=== PATIENT | female | born 1945 | race Caucasian/White ===

== ENCOUNTER → 2016-08-02 | Outpatient (CLI) | payer BC ==
[~2016-08-02] MED LIST: ALPRAZOLAM PO; APAP325 M1 PO; ASPIRIN PO; AUGMENTIN PO; AVAPRO PO; BYSTOLIC10 MG PO; CARDIZEM CD PO; COUMADIN PO; COUMADIN4 MG PO; COUMADIN5 MG PO; DIFICID200 MG PO; DIGESTIVE PROB250 MG PO; DILTIAZEM 24HR120 M1 PO; DILTIAZEM ER120 M3 PO; DOCUSATE SODIU100 MG PO; FLAGYL PO; FLORASTOR250 M1 PO; HYDROCODON-ACE1 EA12 PO; HYDROCODON-ACE1 EAC9 PO; HYDROCODONE-APA1 T55 PO; KEFLEX500 M2 PO; LEVOTHROID50 MCG PO; LEVOTHYROXINE50 MC1 PO; LORTAB 7.5-3251 EACH PO; LOVENOX80 MG/0.8 INJ; MACROBID 100 M100 MG PO; METAMUCIL1 PKT PO; MULTI VITAMIN1 EACH PO; NILSTAT1 ML PO; OMEPRAZOLE40 M1 PO; PHENERGAN12.5 MG PO; PRILOSEC PO; PRILOSEC40 MG PO; PROBIOTIC1 EACH PO; SYNTHROID PO; TOPROL XL PO; VAGIFEM10 MCG VAG; VANCOCIN HCL250 M2 PO; VANCOMYCIN HCL250 MG PO; ZOFRAN PO
--- NOTE | ~2016-08-02 | CT2 ---
[facility] A Service of [facility] & [facility] RADIOLOGY TEXT RESULTS PATIENT: MARCO ANTONIO CHANDLER LOCATION: [facility] : 47 UNIT #: [id number] AGE: [address]: Shon George MD SEX: F ORDER DR: [id number] [facility] [address] [place], [place] [address] [id number] O MR#: [id number] Acc #: [id number] NAME: MARCO ANTONIO CHANDLER : 1945 SEX: F STUDY DATE/TIME: 08/02/2016 15:09 UNIT: [facility] ROOM: STUDY DESCRIPTION: CT Abd and Pelv W Cont Attending Physician: Shon George M.D. Referring Physician: Shon George M.D. Ordering Physician: Shon George M.D. Primary Care Physician: Shon George M.D. MEDICAL IMAGING REPORT This report is preliminary unless electronic signature is present EXAM CT abdomen and pelvis with contrast, 08/02/2016 INDICATION Left lower quadrant abdominal pain and nausea for the past 3 weeks. PROCEDURE Contrast-enhanced CT of the abdomen and pelvis. 100 mL of Isovue-370. This CT exam was performed with one or more of the following radiation dose reduction techniques: automatic exposure control, adjustment of mA and/or kV according to patient size, and iterative reconstruction. COMPARISON 04/17/2016 FINDINGS ABDOMEN WITH CONTRAST: There is linear atelectasis or scarring in the lung bases. Elevated right hemidiaphragm. Liver, spleen, kidneys, adrenal glands and pancreas unremarkable. Previous cholecystectomy. 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 The liver is not frankly cirrhotic in morphology. There is postsurgical change in the distal sigmoid colon. There is mild stranding around the distal sigmoid colon extending superiorly in the retroperitoneum. This is more apparent than on the previous study. There is a fat attenuation structure lateral to the proximal sigmoid colon, that is stable. There is moderate colonic stool. No pathologically enlarged abdominal lymph nodes. There is no organized abdominal fluid collection. STS. [facility] A Service of [facility] & [facility] RADIOLOGY TEXT RESULTS PATIENT: MARCO ANTONIO CHANDLER LOCATION: [facility] : 47 UNIT #: [id number] AGE: [address]: Shon George MD SEX: F ORDER DR: PELVIS WITH CONTRAST: There is a pessary in place. No pelvic mass or fluid. No aggressive appearing bone lesion. IMPRESSION 1. Sigmoid diverticula. There is inflammatory change around the proximal to mid sigmoid colon that extends superiorly into the retroperitoneum. This is more apparent than on the previous study may be new. There is no evidence for an abscess. Findings are suspected to represent mild diverticulitis. There is no evidence for an abscess. 2. Moderate colonic stool burden. 3. Cavernous transformation in the portal vein is unchanged from the prior. Dictated by... Philip Valdes M.D. THIS IS AN ELECTRONICALLY VERIFIED REPORT Philip Valdes M.D. at 08/03/2016 7:05 AM UMA/jaqueline TD: 08/03/2016 04:26 JOB #: [id number] MEDICAL IMAGING REPORT COPY
[2016-08-02 14:45] LABS: POC - CREATININE 0.84 mg/dL (0.44-1.03); POC - GFR >60.0 mL/min (>60)
== END | disposition home or self-care (01) ==
LOC: CCAT 13:55
PROVIDERS: Internal Medicine
DX: R10.32 Left lower quadrant pain (principal); K57.30 Diverticulosis of large intestine without perforation or abscess without bleeding
CPT/HCPCS: 74177; 82565; Q9967

== ENCOUNTER → 2016-09-19 | Day surgery (SDC) | payer BC ==
--- NOTE | ~2016-09-19 | OR ---
Unit #: [id number] #: [id number] Patient: MARCO ANTONIO CHANDLER [id number] [address] [place], [place] [address] [id number] O MR#: [id number] NAME: MARCO ANTONIO CHANDLER ROOM: Date of Procedure: 09/19/2016 Admission Date: 09/19/2016 Surgeon: Xu Jacobs Jr., M.D. : 1945 Attending Physician: Xu Jacobs Jr., M.D. Primary Care Physician: Shon George M.D. PROCEDURE OPERATIVE NOTE INDICATION FOR PROCEDURE The patient is a 71-year-old white female who has had a significant past history for problems with diverticulitis. She had a sigmoid resection and thereafter developed C. difficile colitis and required a prolonged period of time in the hospital. She has been doing well up until recently when she felt like she may be developing some recurrent diverticulitis. It was felt the patient needed a repeat flexible sigmoidoscopy in view of the fact that she is having more symptoms, as this could represent colitis, as well as noted stenosis of the mucosa in the area of her previous anastomosis following her sigmoid resection. She is brought in at this time for flexible sigmoidoscopy and possible dilatation of the anastomosis. DESCRIPTION OF PROCEDURE The patient was positioned in the Barlow position with the left side down. After being given MAC anesthesia, digital rectal examination was performed which revealed no palpable mass or tenderness and no blood or stool within the rectal ampulla. The narrowed area of the anastomosis could be palpated at the top part of the fingertip with pressure. At this point, the Olympus colonoscope was advanced through the anal canal up the rectum and retroflexed down to the area of the anorectal region. There were several small internal hemorrhoidal tags but no evidence of any polyps. The scope was then straightened and advanced up the rectosigmoid where there was anastomosis with some narrowing, but the scope did go through this without significant resistance. The scope was then advanced up past multiple diverticula in the descending colon around the splenic flexure of the transverse colon a total of approximately 75 cm. The scope was then slowly brought back to the area of the anastomosis, and the 20 mm balloon dilator was then placed and brought up in the area of the anastomotic stenotic ring. It was then inflated, and the ring was then stretched with good success in the stretching of this. There was a minimal amount of oozing present. No evidence of any perforation or significant bleeding. The scope was then slowly removed. The patient tolerated the procedure well and was discharged in satisfactory condition. Dictated by... Xu Jacobs Jr., MNajma. CARRILLO/roma TD: 09/19/2016 19:35 JOB #: [id number] Unit #: [id number] #: [id number] Patient: MARCO ANTONIO CHANDLER PROCEDURE OPERATIVE NOTE Page 1 of 1 X Xu Jacobs MD X PROCEDURE OPERATIVE NOTE
== END | disposition home or self-care (01) ==
LOC: COPS 11:18
DX: K57.30 Diverticulosis of large intestine without perforation or abscess without bleeding (principal); K56.60 Unspecified intestinal obstruction; K64.8 Other hemorrhoids; I10 Essential (primary) hypertension; E78.5 Hyperlipidemia, unspecified; K21.9 Gastro-esophageal reflux disease without esophagitis; G47.30 Sleep apnea, unspecified; M19.90 Unspecified osteoarthritis, unspecified site; Z87.09 Personal history of other diseases of the respiratory system; Z86.711 Personal history of pulmonary embolism; Z87.440 Personal history of urinary (tract) infections; Z88.2 Allergy status to sulfonamides; Z88.5 Allergy status to narcotic agent; Z88.8 Allergy status to other drugs, medicaments and biological substances; Z79.01 Long term (current) use of anticoagulants; Z79.891 Long term (current) use of opiate analgesic; Z79.899 Other long term (current) drug therapy; Z90.49 Acquired absence of other specified parts of digestive tract; Z98.890 Other specified postprocedural states

== ENCOUNTER 2016-12-14 16:25 | Emergency (ER) | payer BC ==
[~2016-12-14] VITALS: Ht 157.5 cm; Wt 75.7 kg
--- NOTE | ~2016-12-14 | CR72 ---
[facility] A Service of [facility] & [facility] RADIOLOGY TEXT RESULTS PATIENT: MARCO ANTONIO CHANDLER LOCATION: [facility] : 47 UNIT #: [id number] AGE: [address]: Nuria Martinez MD SEX: F ORDER DR: [id number] [facility] [address] [place], [place] [address] [id number] MR#: [id number] Acc #: [id number] NAME: MARCO ANTONIO CHANDLER : 1945 SEX: F STUDY DATE/TIME: 12/14/2016 17:51 UNIT: [facility] ROOM: STUDY DESCRIPTION: CR Chest Single View Portable Attending Physician: Nuria Martinez M.D. Ordering Physician: Nuria Martinez M.D. Primary Care Physician: Shon George M.D. MEDICAL IMAGING REPORT This report is preliminary unless electronic signature is present EXAM Single-view chest dated 12/14/2016. COMPARISON Chest 2 views dated 12/13/2015. HISTORY Weakness, shortness of air today. FINDINGS Single view of the chest was obtained. No acute cardiopulmonary disease. Raised right hemidiaphragm is redemonstrated. Endplate multilevel osteophytes are noted. Stable borderline [id number] cardiomegaly. Dictated by... Carmina Ceballos M.D. THIS IS AN ELECTRONICALLY VERIFIED REPORT Carmina Ceballos M.D. at 12/15/2016 4:28 PM CPR/psc TD: 12/14/2016 21:19 JOB #: [id number] MEDICAL IMAGING REPORT Page 1 of 1 COPY
--- NOTE | ~2016-12-14 | EKG ---
PATIENT: MARCO ANTONIO CHANDLER UNIT #: [id number] Ventricular Rate: 70 BPM Atrial Rate: 70 BPM P-R Interval: 148 ms QRS Duration: 74 ms Q-T Interval: 410 ms QTC Calculation(Bezet): 442 ms P [place]: 33 degrees Calculated R [place]: 58 degrees Calculated T [place]: 35 degrees Diagnosis Line: Normal sinus rhythm Diagnosis Line: Junctional ST depression, probably normal Diagnosis Line: Borderline ECG Diagnosis Line: Diagnosis Line: Confirmed by ANALI CASTRO MD ([id number]) on Diagnosis Line: 12/15/2016 7:31:35 AM INTERPRETING MD: GLORIA ALANIZ
[2016-12-14 17:43] LABS: URINE SOURCE CLEAN CATCH
[2016-12-14 17:47] LABS: URINE APPEARANCE CLEAR; URINE BILIRUBIN NEG (NEG); URINE BLOOD NEG (NEG); URINE COLOR YELLOW; URINE GLUCOSE NEG (NEG); URINE KETONE NEG (NEG); URINE LEUKOCYTE ESTERASE NEG (NEG); URINE NITRATE NEG (NEG); URINE PH 6.5 (5-8); URINE PROTEIN NEG (NEG); URINE SPECIFIC GRAVITY 1.021 (1.003-1.035)
[2016-12-14 17:52] LABS: CULTURE INDICATED? NO
[2016-12-14 18:02] LABS: BASOPHIL% 0.8 % (0-2.5); DIFF IND NO; EOSINOPHIL# 0.1 X10e3 (0-0.7); EOSINOPHIL% 1.8 % (0.0-7.0); HEMATOCRIT 36.9 % (35.0-45.0); HEMOGLOBIN 12.3 gm/dL (12.0-16.0); LYMPHOCYTE# 1.2 X10e3 (1.0-3.5); LYMPHOCYTE% 29.7 % (17.0-45.0); MEAN CELL VOLUME 93.6 FL (83-96); MEAN CORPUSCULAR HEMOGLOBIN 31.2 PG (28-34); MEAN CORPUSCULAR HGB CONC 33.4 g/dL (30-36); MEAN PLATELET VOLUME 8.3 FL (6.5-11.5); MONOCYTE# 0.4 X10e3 (0-1.0); NEUTROPHIL# 2.3 X10e3 (1.5-7.1); NEUTROPHIL% 58.7 % (40-75); PLATELET COUNT 143 X10e3 (140-420); RED BLOOD COUNT 3.94 X10e (3.90-5.30); RED CELL DISTRIBUTION WIDTH 14.1 % (11.0-15.5)
[2016-12-14 18:09] LABS: POC - CKMB <1.0 ng/mL (0.0-7.9); POC - TROPONIN <0.05 ng/mL (<=0.05)
[2016-12-14 18:16] LABS: INR 2.6; PARTIAL THROMBOPLASTIN TIME 34.5 SECONDS (23.5-31.3)
[2016-12-14 18:42] LABS: ALBUMIN SERUM 4.3 g/dL (3.5-5.0); BILIRUBIN, DIRECT 0.3 mg/dL (0.0-0.2); BILIRUBIN,INDIRECT 1.3 mg/dL (0.0-0.9); BILIRUBIN,TOTAL 1.6 mg/dL (0.2-2.0); CALCIUM SERUM 9.3 mg/dL (8.4-10.2); CREATININE SERUM 0.5 mg/dL (0.6-1.4); GLOM FILT RATE Estimated 98.1 mL/min (>60); POTASSIUM 3.6 mmol/L (3.5-5.1); PROTEIN TOTAL SERUM 7.4 g/dL (6.0-8.3)
[2016-12-14 20:06] LABS: POC - CKMB 1.3 ng/mL (0.0-7.9); POC - TROPONIN <0.05 ng/mL (<=0.05)
== END 2016-12-14 21:25 | disposition home or self-care (01) ==
LOC: CED 16:25
PROVIDERS: Emergency Medicine
DX: K57.92 Diverticulitis of intestine, part unspecified, without perforation or abscess without bleeding (principal); T50.8X5A Adverse effect of diagnostic agents, initial encounter; I10 Essential (primary) hypertension; Z90.49 Acquired absence of other specified parts of digestive tract; Z79.899 Other long term (current) drug therapy; Z88.8 Allergy status to other drugs, medicaments and biological substances
CPT/HCPCS: 36415; 71010; 80048; 80076; 81003; 82553; 84484; 85025; 85610; 85730; 93005; 99284

== ENCOUNTER → 2016-12-14 | Outpatient (CLI) | payer BC ==
--- NOTE | ~2016-12-14 | CT2 ---
[facility] A Service of [facility] & [facility] RADIOLOGY TEXT RESULTS PATIENT: MARCO ANTONIO CHANDLER [facility] : 47 UNIT #: [id number] AGE: [address]: Shon George MD SEX: F ORDER DR: [id number] [facility] [address] [facility]. [place], [place] [address] [id number] O MR#: [id number] Acc #: [id number] NAME: MARCO ANTONIO CHANDLER : 1945 SEX: F STUDY DATE/TIME: 12/14/2016 16:13 UNIT: [facility] ROOM: STUDY DESCRIPTION: CT Abd and Pelv W Cont Attending Physician: Shon George M.D. Referring Physician: Shon George M.D. Ordering Physician: Shon George M.D. Primary Care Physician: Shon George M.D. MEDICAL IMAGING REPORT This report is preliminary unless electronic signature is present EXAM CT of the abdomen and pelvis with contrast INDICATIONS Left sided abdominal pain for 1 week, diarrhea for [address] scan of the abdomen and pelvis was performed following the administration of oral and IV contrast. Coronal and sagittal reformatted images were obtained. This CT exam was performed with one or more of the following radiation dose reduction techniques: automatic exposure control, adjustment of mA and/or kV according to patient size, and iterative reconstruction. COMPARISON 08/02/2016 FINDINGS There is linear scarring or atelectasis in the lung bases. The liver is unremarkable. Cholecystectomy. The spleen is unremarkable. The kidneys are unremarkable. The adrenal glands are unremarkable. The pancreas is unremarkable. Pelvis: Postop changes of the rectosigmoid. Stable straining surgical clips in the operative region. Diverticulosis. There is some mild thickening of a segment of proximal sigmoid colon best seen on coronal image 25 which may indicate some mild diverticulitis. No evidence for abscess or perforation. There is a tiny air bubble in the nondependent portion of the urinary bladder. This may be due to recent bladder instrumentation. Correlate clinically. There is no free fluid in the pelvis. The bone windows are unremarkable. STS. [facility] A Service of [facility] & [facility] RADIOLOGY TEXT RESULTS PATIENT: MARCO ANTONIO CHANDLER LOCATION: [facility] : 47 UNIT #: [id number] AGE: [address]: Shon George MD SEX: F ORDER DR: IMPRESSION 1. Redemonstrated are postoperative changes of the rectosigmoid with some stable chronic-appearing stranding in the operative region which is probably some scarring. 2. Diverticulosis with some mild thickening of a short segment of proximal sigmoid colon which may indicate mild diverticulitis. No evidence for abscess or perforation. 3. Cholecystectomy. 4. Additional findings as described. Dictated by... Yao Eason M.D. THIS IS AN ELECTRONICALLY VERIFIED REPORT Yao Eason M.D. at 12/17/2016 9:06 AM KALEY/jessica TD: 12/14/2016 19:47 JOB #: [id number] MEDICAL IMAGING REPORT Page 1 of 1 COPY
[2016-12-14 16:11] LABS: POC - CREATININE 0.78 mg/dL (0.44-1.03); POC - GFR >60.0 mL/min (>60)
== END | disposition home or self-care (01) ==
LOC: CCAT 15:00
PROVIDERS: Internal Medicine
DX: R19.7 Diarrhea, unspecified (principal); K57.30 Diverticulosis of large intestine without perforation or abscess without bleeding; K63.89 Other specified diseases of intestine; Z90.49 Acquired absence of other specified parts of digestive tract; Z98.890 Other specified postprocedural states
CPT/HCPCS: 74177; 82565; Q9967